=== PATIENT | male | born 1970 | race African-American/Black ===

== ENCOUNTER 2018-01-16 17:47 | Emergency (ER) | payer OTHER ==
[~2018-01-16] VITALS: Ht 188 cm; Wt 102.1 kg
[2018-01-16 18:01] VITALS: BP 161/87
--- NOTE | 2018-01-16 21:49 | Emergency Room Report ---
History of Present Illness General Chief Complaint: General Complaint Source: Patient Present Illness Allergies: Coded Allergies: No Known Allergies (Unverified , 01/16/18) Nursing Documentation-H Hx Hypertension: Yes Physical Exam Vital Signs Date Time Temp Pulse Resp B/P (MAP) Pulse Ox O2 Delivery O2 Flow Rate FiO2 01/16/18 17:59 97.9 93 20 161/87 96 Room Air 97.9 Medical Decision Making Diagnostic Impression: Primary Impression: Patient left without being seen ER Course Patient presented to triage with elevated blood pressure. Asked for his blood pressure to be checked. BP 161/87. Patient states he did not want to be evaluated by physician and left from triage Last Vital Signs Date Time Temp Pulse Resp B/P (MAP) Pulse Ox O2 Delivery O2 Flow Rate FiO2 01/16/18 18:01 20 161/87 96 Room Air 01/16/18 18:01 97.9 97.9 01/16/18 17:59 93 Status: unchanged Disposition: LEFT W/OUT BEING SEEN Condition: Unknown Referrals: [facility] (PCP) Piotr Pa MD January 16, 2018 21:49
== END 2018-01-16 18:03 | disposition left against medical advice (07) ==
LOC: EMR 17:55
DX: I10 Essential (primary) hypertension (principal); Z53.21 Procedure and treatment not carried out due to patient leaving prior to being seen by health care provider
CPT/HCPCS: 99281